=== PATIENT | female | born 1965 | race Caucasian/White ===

== ENCOUNTER → 2020-10-18 | Outpatient (CLI) | payer OTHER ==
--- NOTE | 2020-10-18 13:19 | RAD ---
EXAM: Right foot, 3 views. HISTORY: Internal fixation. COMPARISON: None. FINDINGS: 3 views of the right foot are obtained. There is instrumented fusion of the medial and late ral mid foot in anatomic alignment. There is internal fixation of the subtalar joint and a suspected healed distal fibular metaphyseal fracture in anatomic alignment. There is a small plantar spur. Ther e is external casting material. IMPRESSION: Instrumented fusion of the mid and hindfoot and internal fixation of a suspected healed d istal fibular metaphyseal fracture. Electronically signed by: Jo Silva MD (10/18/2020 1:17 PM) [id number]
== END ==
LOC: DXRAD 12:52
PROVIDERS: ATTEND Podiatrist Foot & Ankle Surgery
DX: M24.674 Ankylosis, right foot (principal); M77.51 Other enthesopathy of right foot and ankle; M24.571 Contracture, right ankle; M19.071 Primary osteoarthritis, right ankle and foot
CPT/HCPCS: 73630